=== PATIENT | female | born 1965 | race Caucasian/White ===

== ENCOUNTER 2019-01-17 08:09 | Emergency (ER) | payer BC ==
[2019-01-17 08:44] VITALS: BP 149/108
[2019-01-17] MEDS ORDERED: Ibuprofen TAB* 400 MG PO ONE (08:54)
[2019-01-17] MEDS ORDERED: Amoxicillin/Clavulanate TAB* 875 MG PO ONE (08:54)
--- NOTE | 2019-01-17 08:54 | UC ---
Bite Injury/Animal HPI - HPI Summary HPI Summary: Dog bite to left thumb 12 hours ago. laceation on palmar aspect and pw on dorsum of thumb-- + pain and swelling - History of Current Complaint Chief Complaint: UCSkin Stated Complaint: LEFT THUMB DOG BITE Time Seen by Provider: 01/17/19 08:34 Hx Obtained From: Patient Hx Last Menstrual Period: 01/05 spotting ?: No Pain Intensity: 12 Pain Scale Used: 0-10 Numeric Onset/Duration: Sudden Onset, Lasting Hours - 12 Type of Bite: Pet Has Animal Been Immunized?: Yes Character: Puncture, Abrasion/Laceration Aggravating Factor(s): Other - touch or movement Alleviating Factor(s): Nothing Associated Signs And Symptoms: Positive: Swelling, Limited ROM Hx of Bite: Provoked by: - help dog that got his lower jaw stuck in collar Animal Available for Observation: Yes Animal Control Notified: Yes - Allergies/Home Medications Allergies/Adverse Reactions: Allergies Allergy/AdvReac Type Severity Reaction Status Date / Time No Known Allergies Allergy Verified 01/17/19 08:30 Home Medications: Home Medications Lisinopril Tablet 1 tab PO DAILY 01/17/19 [History Confirmed 01/17/19] SUMAtriptan TAB* [Imitrex TAB*] 50 mg PO SEE INSTRUCTIONS PRN 01/17/19 [History Confirmed 01/17/19] Venlafaxine EXT RELEASE CAP* [Effexor Xr CAP*] 75 mg PO DAILY 01/17/19 [History Confirmed 01/17/19] PMH/Surg Hx/FS Hx/Imm Hx Previously Healthy: No Cardiovascular History: Hypertension Neurological History: Migraine Psychological History: Depression - Surgical History Surgical History: Yes Surgery Procedure, Year, and Place: ablation, appy, b/l carpal tunnel; gastric sleeve 11/2012; breast reduction - Family History Known Family History: Positive: None - Social History Occupation: Employed Full-time Lives: With Family Alcohol Use: Occasionally Substance Use Type: None Smoking Status (MU): Former Smoker When Did the Patient Quit Smoking/Using Tobacco: age 28 - Immunization History Most Recent Tetanus Shot: unknown Review of Systems All Other Systems Reviewed And Are Negative: Yes Constitutional: Positive: Negative Skin: Positive: Bruising, Other - pw and laceration Eyes: Positive: Negative ENT: Positive: Negative Respiratory: Positive: Negative Cardiovascular: Positive: Negative Gastrointestinal: Positive: Negative Genitourinary: Positive: Negative Motor: Positive: Decreased ROM Neurovascular: Positive: Negative Musculoskeletal: Positive: Arthralgia, Edema Neurological: Positive: Negative Psychological: Positive: Negative Is Patient Immunocompromised?: No Physical Exam Triage Information Reviewed: Yes Appearance: Well-Appearing, Well-Nourished, Pain Distress Vital Signs: Initial Vital Signs Temp 99 F 01/17/19 08:36 Pulse 92 01/17/19 08:36 Resp 18 01/17/19 08:36 BP 149/108 01/17/19 08:36 Pulse Ox 99 01/17/19 08:36 Vital Signs Reviewed: Yes Eye Exam: Normal Eyes: Positive: Conjunctiva Clear ENT Exam: Normal ENT: Positive: Normal ENT inspection, Hearing grossly normal. Negative: Trismus , Muffled voice, Hoarse voice Dental Exam: Normal Neck exam: Normal Neck: Positive: Supple, Nontender Respiratory Exam: Normal Respiratory: Positive: Chest non-tender, No respiratory distress, No accessory muscle use Cardiovascular Exam: Normal Cardiovascular: Positive: RRR, Pulses Normal, Brisk Capillary Refill Musculoskeletal Exam: Other Musculoskeletal: Positive: ROM Limited @ - left thumb, Edema @ - left thumb Neurological Exam: Normal Neurological: Positive: Alert, Muscle Tone Normal Psychological Exam: Normal Skin: Positive: Other - 1. 15 mm lacaration palmar surface of left thumb 2. pw just below nail dorsal surface of left thumb Procedures - Laceration/Wound Repair 1 Location: Other - kaplan surface of left thumb Description: Irregular Length, Depth and Shape: 15 mm width 3 mm 1 mm depth Betadine Prep?: No Irrigated w/ Saline (ccs): 250 Laceration/Wound Explored: clean Layer Closure?: No - wound not closed as it is >12 hours old Sterile Dressing Applied?: Yes Diagnostics - Radiology No standard instances Radiology Interpretation Completed By: Radiologist - no evidence of fracture Bite Injury Course/Dx - Course Course Of Treatment: Vaseline gauze and bulky dressing--thumb spica when swelling resolves- ibuprof. for pain, Augmentin for 10 day follow with hand surgeon-- - Differential Dx/Diagnosis Provider Diagnosis: Dog bite of left thumb, Not up to date with diphtheria-tetanus vaccination Discharge ED - Sign-Out/Discharge Documenting (check all that apply): Patient Departure All imaging exams completed and their final reports reviewed: Yes - Discharge Plan Condition: Stable Disposition: HOME Prescriptions: Amoxicillin/Clavulanate TAB* [Augmentin TAB 875*] 875 mg PO BID #19 tab Ibuprofen TAB* [Motrin TAB* 600 MG] 600 mg PO Q6H PRN #40 tab PRN Reason: Pain - Moderate Patient Education Materials: Diphtheria/Acellular Pertussis/Tetanus Booster Vaccine (By injection), Animal Bite (ED), Warm Compress or Soak (ED) Referrals: Nataliya Garcia MD [Medical Doctor] - 3 Days - Billing Disposition and Condition Condition: STABLE Disposition: Home
[2019-01-17] MEDS ORDERED: Lidocaine 4% TOPICAL* 50 ML TOP.SOLN TOPICAL ONE (08:55)
[2019-01-17] MEDS ORDERED: Tetan/Diph/Pertus SYR(Tdap)* 0.5 ML SYR(BOOSTRIX) use SYR contains LATEX IM ONE (10:03)
== END 2019-01-17 10:19 | disposition home or self-care (01) ==
LOC: UCCORT 08:09
DX: S61.052A Open bite of left thumb without damage to nail, initial encounter (principal); S61.412A Laceration without foreign body of left hand, initial encounter; W54.0XXA Bitten by dog, initial encounter; Y92.9 Unspecified place or not applicable; Z23 Encounter for immunization; I10 Essential (primary) hypertension; G43.909 Migraine, unspecified, not intractable, without status migrainosus; F32.9 Major depressive disorder, single episode, unspecified; Z79.899 Other long term (current) drug therapy; Z87.891 Personal history of nicotine dependence
CPT/HCPCS: 90471; 90715; 99203; A9270-GY; G0463